=== PATIENT | male | born 2000 | race Hispanic/Latino ===

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

== ENCOUNTER → 2019-09-19 | Outpatient (REF) | payer OTHER ==
[~2019-09-19] MED LIST: PRAZ1CAP PO; TRAZ-257 PO; WELLTAB40 PO
[2019-09-19 21:20] LABS: CHLAMYDIA DNA AMPLIFICATION POSITIVE (NEGATIVE); GC DNA AMPLIFICATION NEGATIVE (NEGATIVE)
== END ==
LOC: M LAB REF 19:15
PROVIDERS: ATTEND Physician Assistant Medical
DX: Z20.2 Contact with and (suspected) exposure to infections with a predominantly sexual mode of transmission (principal)